=== PATIENT | male | born 1960 | race Caucasian/White ===

== ENCOUNTER 2020-08-09 20:42 | Observation (INO) | payer OTHER ==
[~2020-08-09] VITALS: Ht 167.6 cm; Wt 95.3 kg
[2020-08-09 20:50] VITALS: Ht 167.6 cm; Wt 95.3 kg
[2020-08-09 21:54] LABS: BASOPHIL % 0.6 % (0-2); PLATELET COUNT 261 x10^3mcL (130-400); RED CELL DISTRIBUTION WIDTH 12.6 % (11.5-14.5)
[2020-08-09 22:15] LABS: CALCIUM 8.9 mg/dL (8.5-10.1); CARBON DIOXIDE 31.1 mmol/L (21-32); CHLORIDE SERUM 105 mmol/L (98-107); GFR1 > 60 mL/min; GLUCOSE SERUM 98 mg/dL (74-106); POTASSIUM SERUM 4.8 mmol/L (3.5-5.1); SODIUM SERUM 140 mmol/L (136-145)
[2020-08-09 22:19] LABS: ALBUMIN 3.6 g/dL (3.4-5.0); ALKALINE PHOSPHATASE 82 U/L (46-116); ALT/SGPT 50 U/L (16-63); AST/SGOT 25 U/L (15-37); BILIRUBIN TOTAL 0.4 mg/dL (0.20-1.00)
[2020-08-10] MEDS ORDERED: CLARITIN LIQUI-10 MG PO (00:19)
[2020-08-10] MEDS ORDERED: PRIMATENE MIS11.7 GM (00:20)
[2020-08-10 05:18] VITALS: BP 151/83
[2020-08-10 06:03] VITALS: BP 151/83
[2020-08-10 08:29] VITALS: BP 142/72
[2020-08-10 12:47] VITALS: BP 137/77
[2020-08-10 17:12] VITALS: BP 128/68
[2020-08-10] MEDS ORDERED: AZITHROMYCIN1 GM PO (18:54)
[2020-08-10] MEDS ORDERED: DELTASONE20 MG PO (18:54)
[2020-08-10] MEDS ORDERED: PROAIR HFA8.5 GM INH (18:55)
[2020-08-10] MEDS ORDERED: ROBL PO (18:56)
[2020-08-10] MEDS ORDERED: NASAL MIST126 ML (18:56)
== END 2020-08-10 20:35 | disposition home or self-care (01) ==
LOC: ED 20:42 → DU 08-10 00:32
PROVIDERS: Student in an Organized Health Care Education/Training Program; ADMIT Hospitalist; ATTEND Hospitalist
DX: J45.901 Unspecified asthma with (acute) exacerbation (principal); R07.89 Other chest pain; Z72.0 Tobacco use
CPT/HCPCS: 83880; G0378; J1644; J2920; J2930; J7644